=== PATIENT | female | born 1995 | race American Indian/Alaskan Native ===

== ENCOUNTER 2021-11-18 10:04 | Emergency (ER) | payer MEDICAID ==
[2021-11-18 11:08] VITALS: BP 134/88
--- NOTE | 2021-11-18 11:40 | Event Note ---
ED Screening Note ED Screening Note: 26-year-old female who is 13 weeks last menstrual period was August 20, 2019 who presents with abdominal pain and vaginal bleeding. Patient reports she notices blood every time she wipes x2 days. She has not followed up with OB care yet. 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 Musculoskeletal-normal inspection full range of motion Neuro-alert oriented x4. In the setting of a significantly high volume and record number of patients presenting to the emergency department and the fact that we have a limited space to see patients we have implemented the provider in triage protocol this allows an expedited initial exam of patients that might otherwise have left without being seen or who would wait longer than usual to be seen by provider. I interviewed the patient and performed a limited physical exam. This patient is a pulled from the waiting room to triage room for an initial assessment of adrenal studies and then returned to the waiting room pending results of the studies. The ultimate final evaluation and disposition may be performed by another provider depending on room and provider availability.
[2021-11-18 12:41] LABS: Basophils # (Auto) 0.1 K/mm3 (0.0-0.1); Eosinophils # (Auto) 0.1 K/mm3 (0.0-0.4); Eosinophils % (Auto) 1.5 % (0.0-4.3); Hematocrit 37.4 % (30.3-42.9); Hemoglobin 12.4 gm/dl (10.1-14.3); Lymphocytes # (Auto) 2.5 K/mm3 (1.2-5.4); Lymphocytes % (Auto) 32.2 % (13.4-35.0); Mean Corpuscular HGB Conc 33 % (30-34); Mean Corpuscular Volume 89 fl (79-97); Monocytes # (Auto) 0.6 K/mm3 (0.0-0.8); Monocytes % (Auto) 7.8 % (0.0-7.3); Platelet Count 247 K/mm3 (140-440); Red Cell Distribution Width 14.4 % (13.2-15.2)
[2021-11-18 12:58] LABS: BUN/Creatinine Ratio 6; Blood Urea Nitrogen 5 mg/dL (7-17); Calcium 9.3 mg/dL (8.4-10.2); Hemolysis Index 2
--- NOTE | 2021-11-18 14:46 | Ultrasound Report ---
ULTRASOUND OBSTETRIC INDICATION / CLINICAL INFORMATION: VAG BLEED PREG. Clinical Gestational Age (GA): 13.0 weeks.days TECHNIQUE: Transabdominal and Transvaginal. COMPARISON: None available. FINDINGS: GESTATIONAL SAC: Well-defined oval shape and intrauterine in location. YOLK SAC: No significant abnormality. EMBRYO/FETUS: No heart rate detected - [place]-Rump Length = 0.90 cm = 6.6 weeks.days ADNEXA: No significant abnormality. FREE FLUID: None. ADDITIONAL FINDINGS: None. IMPRESSION: Findings suggesting intrauterine demise as above. Correlation with hCG values recommended. Signer Name: Isaak Edmonds MD Signed: 11/18/2021 2:42 PM Workstation Name: [employer]
--- NOTE | 2021-11-18 14:46 | Ultrasound Report ---
ULTRASOUND OBSTETRIC INDICATION / CLINICAL INFORMATION: VAG BLEED PREG. Clinical Gestational Age (GA): 13.0 weeks.days TECHNIQUE: Transabdominal and Transvaginal. COMPARISON: None available. FINDINGS: GESTATIONAL SAC: Well-defined oval shape and intrauterine in location. YOLK SAC: No significant abnormality. EMBRYO/FETUS: No heart rate detected - [place]-Rump Length = 0.90 cm = 6.6 weeks.days ADNEXA: No significant abnormality. FREE FLUID: None. ADDITIONAL FINDINGS: None. IMPRESSION: Findings suggesting intrauterine demise as above. Correlation with hCG values recommended. Signer Name: Isaak Edmonds MD Signed: 11/18/2021 2:42 PM Workstation Name: [email or web address]
--- NOTE | 2021-11-18 15:06 | Emergency Department Report ---
ED Female HPI - General Chief complaint: Vaginal Bleeding Stated complaint: 13WKS PREG VAG BLEEDING LIGHT HEADED BACK PAIN Time Seen by Provider: 11/18/21 11:30 Source: patient Mode of arrival: Ambulatory Limitations: No Limitations - History of Present Illness Initial comments: 26 YO COMES TO ER WITH VAG BLEED IN PREG 13 WEEKS PER PT LMP END OF JULY HAS SEEN OBGYN AND PREG HAS BEEN FINE NO DYSURIA NO FEVER OR CHILLS NO VAG DC CO LIGHT VAG SPOTTING AND MENSTRUAL TYPE CRAMPS Complaint: vaginal bleeding Are you Now?: Yes Associated Symptoms: denies other symptoms, vaginal bleeding. denies: vaginal discharge, abdominal pain, nausea/vomiting, fever/chills - Related Data Sexually active: Yes : 4 Para: 3 Allergies Allergy/AdvReac Type Severity Reaction Status Date / Time No Known Allergies Allergy Verified 11/18/21 11:09 ED Review of Systems ROS: Stated complaint: 13WKS PREG VAG BLEEDING LIGHT HEADED BACK PAIN Other details as noted in HPI Comment: All other systems reviewed and negative ED Past Medical Hx - Past Medical History Previous Medical History?: No - Surgical History Past Surgical History?: No - Family History Family history: no significant - Social History Smoking Status: Never Smoker Substance Use Type: Alcohol ED Physical Exam - General Limitations: No Limitations General appearance: alert, in no apparent distress - Head Head exam: Present: atraumatic, normocephalic - Eye Eye exam: Present: normal appearance - ENT ENT exam: Present: mucous membranes moist - Neck Neck exam: Present: normal inspection - Respiratory Respiratory exam: Present: normal lung sounds bilaterally. Absent: respiratory distress - Cardiovascular Cardiovascular Exam: Present: regular rate, normal rhythm. Absent: systolic mu rmur, diastolic murmur, rubs, gallop - GI/Abdominal GI/Abdominal exam: Present: soft, normal bowel sounds - Extremities Exam Extremities exam: Present: normal inspection - Back Exam Back exam: Present: normal inspection - Neurological Exam Neurological exam: Present: alert, oriented X3 - Psychiatric Psychiatric exam: Present: normal affect, normal mood - Skin Skin exam: Present: warm, dry, intact, normal color. Absent: rash ED Course Vital Signs 11/18/21 11:02 Temperature 98.2 F Pulse Rate 73 Respiratory 16 Rate Blood Pressure 134/88 [Right] O2 Sat by Pulse 100 Oximetry ED Medical Decision Making - Lab Data Result diagrams: 11/18/21 11:55 11/18/21 11:55 - Radiology Data Radiology results: report reviewed, image reviewed SEE REPORT - Medical Decision Making Labs 11/18/21 11/18/21 11/18/21 11:55 11:55 11:55 WBC 7.8 RBC 4.20 Hgb 12.4 Hct 37.4 MCV 89 MCH 30 MCHC 33 RDW 14.4 Plt Count 247 Lymph % (Auto) 32.2 Randall % (Auto) 7.8 H Eos % (Auto) 1.5 Baso % (Auto) 1.0 Lymph # (Auto) 2.5 Randall # (Auto) 0.6 Eos # (Auto) 0.1 Baso # (Auto) 0.1 Seg Neutrophils % 57.5 Seg Neutrophils # 4.5 Sodium 141 Potassium 4.7 Chloride 105.8 Carbon Dioxide 28 Anion Gap 12 BUN 5 L Creatinine 0.9 Estimated GFR > 60 BUN/Creatinine Ratio 6 Glucose 96 Calcium 9.3 HCG, Quant 9662 H Blood Type Ord Rhogam Gestat Weeks 11/18/21 11:55 WBC RBC Hgb Hct MCV MCH MCHC RDW Plt Count Lymph % (Auto) Randall % (Auto) Eos % (Auto) Baso % (Auto) Lymph # (Auto) Randall # (Auto) Eos # (Auto) Baso # (Auto) Seg Neutrophils % Seg Neutrophils # Sodium Potassium Chloride Carbon Dioxide Anion Gap BUN Creatinine Estimated GFR BUN/Creatinine Ratio Glucose Calcium HCG, Quant Blood Type B POSITIVE Ord Rhogam Gestat Weeks Rh pos Vital Signs 11/18/21 11:02 Temperature 98.2 F Pulse Rate 73 Respiratory 16 Rate Blood Pressure 134/88 [Right] O2 Sat by Pulse 100 Oximetry RH POS LABS NOTED VSS US NOTED DISCUSSED FINDINGS WITH PT. SHE HAS OB AND WILL CALL THEM ON DC DC HOME WITH DC PLAN OF CARE INCLUDING DIET, MEDS, ACTIVITY AND FOLLOW UP. SHE VERBALIZES UNDERSTANDING OF PLAN OF CARE. - Differential Diagnosis RO AB/ECTOPIC Critical care attestation.: If time is entered above; I have spent that time in minutes in the direct care of this critically ill patient, excluding procedure time. ED Disposition Clinical Impression: Threatened Disposition: 01 HOME / SELF CARE / HOMELESS Is pt being admited?: No Does the pt Need Aspirin: No Condition: Stable Instructions: Threatened Miscarriage, [id number] Additional Instructions: tylenol for pain follow up with obgyn in 48 hours referral below Referrals: PRIMARY CARE, [Primary Care Provider] - 3-5 Days AIDA MONTIEL MD [Staff Physician] - 3-5 Days Forms: Work/School Release Form(ED) Time of Disposition: 15:11
[2021-11-18 15:23] LABS: Color,Urine Straw (Yellow)
[2021-11-18 15:27] LABS: Bacteria,Urine 1+ /HPF (Negative)
[2021-11-18 15:30] LABS: RBC,Urine < 1.0 /HPF (0.0-6.0)
== END 2021-11-18 15:15 | disposition home or self-care (01) ==
LOC: ED 10:04
DX: O20.0 Threatened abortion (principal); Z3A.13 13 weeks gestation of pregnancy; Z72.89 Other problems related to lifestyle; Z79.899 Other long term (current) drug therapy
CPT/HCPCS: 36415; 76801; 76817; 80048; 81001; 84702; 85025; 86900; 86901; 99284